=== PATIENT | female | born 1990 | race Caucasian/White ===

== ENCOUNTER 2019-07-24 16:39 | Emergency (ER) | payer OTHER, BC ==
[2019-07-24] MEDS ORDERED: Metoclopramide 10 MG/2 ML SDV IVPUSH ONE (16:56)
[2019-07-24] MEDS ORDERED: Bupivacaine 0.5% 10 ML SDV INJECT ONE (16:57)
[2019-07-24] MEDS ORDERED: Sodium Chloride 0.9% 1,000 ML IV SCH (17:00)
--- NOTE | 2019-07-24 17:00 | EDM.PDOC ---
ED HPI GENERAL MEDICAL PROBLEM - General Chief Complaint: Upper Extremity Injury/Pain Stated Complaint: CUT FINGER TIP OFF Time Seen by Provider: 07/24/19 16:55 Source of Information: Reports: Patient History Limitations: Reports: No Limitations - History of Present Illness INITIAL COMMENTS - FREE TEXT/NARRATIVE: 28-year-old female presents to the ED with a partial amputation of the tip of her left second finger. Patient did this at local school using a second hand paper machine. This is like a hatchet or machete. This resulted in partial amputation of the nail and the volar surface of the left distal second finger ulnar aspect. She believes her tetanus toxoid is up-to-date. Patient suddenly became nauseated when I entered the room. She started vomiting. Onset: Today Onset Date: 07/24/19 Onset Time: 16:15 Duration: Minutes: Location: Reports: Upper Extremity, Left (Left distal ulnar aspect of her second finger) Quality: Reports: Ache, Burning Severity: Moderate Improves with: Reports: None Worsens with: Reports: None Context: Reports: Trauma (Accidentally cut the tip of her finger off with a large second hand paper machine). Denies: Activity, Exercise, Lifting, Sick Contact Associated Symptoms: Reports: Nausea/Vomiting (Started to have nausea and vomiting in the ED.) Treatments WASH HELPER: Reports: Other (see below) (None.) - Related Data Allergies Allergy/AdvReac Type Severity Reaction Status Date / Time No Known Allergies Allergy Verified 07/24/19 17:19 Home Meds: Home Meds DULoxetine HCl [Cymbalta] 60 mg PO DAILY 07/24/19 [History] Doxycycline [Vibramycin] 100 mg PO BID #20 cap 07/24/19 [Rx] traZODone HCl [Trazodone HCl] 50 mg PO BEDTIME 07/24/19 [History] Social & Family History - Living Situation & Occupation Living situation: Reports: Single Occupation: Employed Review of Systems - Review of Systems Review Of Systems: See Below Constitutional: Reports: Other Eyes: Reports: No Symptoms (Nauseated) Ears: Reports: No Symptoms Nose: Reports: No Symptoms Mouth/Throat: Reports: No Symptoms Respiratory: Reports: No Symptoms Cardiovascular: Reports: No Symptoms GI/Abdominal: Reports: No Symptoms Genitourinary: Reports: No Symptoms Musculoskeletal: Reports: Other Skin: Reports: No Symptoms Neurological: Reports: No Symptoms Psychiatric: Reports: No Symptoms ED EXAM, GENERAL - Physical Exam Exam: See Below Exam Limited By: No Limitations General Appearance: Alert, WD/WN, Moderate Distress (Anxious quite pallid. Started vomiting in the room.) Eye Exam: Bilateral Eye: Normal Inspection Throat/Mouth: Normal Inspection, Normal Lips, Normal Teeth, Normal Oropharynx Head: Atraumatic, Normocephalic Extremities: Other (Examination for the most part was limited to her distal left second finger. Partially amputated the corner of the ulnar aspect of the tip of the nail the underlying nailbed and the ulnar aspect of the fingertip. One appears to be intact but will be confirmed by x-ray.) Psychiatric: Anxious Skin Exam: Diaphoretic ED TRAUMA EXTREMITY PROCEDURES - Laceration/Wound Repair Left Distal Digit - 2nd (Index) Lac/Wound Length In cm: 1.5 (Patient has a partial amputation of the ulnar aspect of the tip of her left second finger involving the distal nailbed) Appearance: Subcutaneous, Clean Distal NVT: No Tendon Injury Anesthetic Type: Digital Local Anesthesia - Bupivicaine (Marcaine): 0.5% Plain Local Anesthetic Volume: Other (8 mL) Skin Prep: Chlorhexidine (Hibiciens), Saline (Soaked in saline for 10 minutes with a little bit of Betadine.) Exploration/Debridement/Repair: Minimally Undermined Closed With: Sutures Suture Size: 3-0 # of Sutures: 4 (3 sutures were placed through the fingernail and nail bed to help approximate the wound which was adjacent to the fingernail. Approximately 70% of the wound was approximated. I did undermine the ulnar aspect of the wound.) Suture Type: Nylon, Interrupted, Simple Course - Vital Signs Last Recorded V/S: Last Vital Signs Temp 35.9 C 07/24/19 18:55 Pulse 70 07/24/19 18:55 Resp 16 07/24/19 18:55 BP 103/63 07/24/19 18:55 Pulse Ox 99 07/24/19 18:55 - Orders/Labs/Meds Orders: Active Orders 24 hr Category Date Time Status Fingers Second Digit Lt F1 [CR] Stat Exams 07/24/19 17:18 Taken Meds: Medications Discontinued Medications Generic Name Dose Route Start Last Admin Trade Name Freq PRN Reason Stop Dose Admin Bupivacaine HCl 10 ml 07/24/19 16:57 07/24/19 17:21 Sensorcaine-Mpf 0.5% INJECT 07/24/19 16:58 10 ml ONETIME ONE Administration Bupivacaine HCl Confirm 07/24/19 18:32 07/24/19 19:05 Sensorcaine-Mpf 0.5% Administered 07/24/19 18:33 Not Given Dose 10 ml .ROUTE .STK-MED ONE Doxycycline Hyclate 200 mg 07/24/19 19:21 Vibramycin PO 07/24/19 19:22 ONETIME ONE Sodium Chloride 1,000 mls @ 250 mls/hr 07/24/19 17:00 Normal Saline IV ASDIRECTED WAGNER Metoclopramide HCl 7.5 mg 07/24/19 16:56 Reglan IVPUSH 07/24/19 16:57 ONETIME ONE Ondansetron HCl 4 mg 07/24/19 17:17 07/24/19 17:21 Zofran Odt PO 07/24/19 17:18 4 mg ONETIME ONE Administration - Radiology Interpretation Free Text/Narrative:: 28-year-old female presents to the ED having cut the distal end of a left second finger off. He was cutting paper in a large machete-like second hand paper machine at school. She accidentally caught her distal left ulnar second finger in a second hand paper machine and this resulted in partial amputation of the distal ulnar aspect of her fingernail and pulp space. Patient started vomiting is soon as I walked in the room. I was going to start an IV and give her antinausea medication but once she settled down she preferred not to have an IV and she did tolerate sublingual Zofran 4 mg. - Re-Assessments/Exams Free Text/Narrative Re-Assessment/Exam: 07/24/19 19:00: I did undermine the ulnar volar aspect of the wound. I was then able to approximate the wound partially but I was unable to provide enough skin to close the gap completely with 3-0 Ethilon sutures 4. She'll be placed in a finger cot dressing for the next 2 days. She was given a splint to protect the area for the next couple of weeks. Advised that this will granulate in over a period of about 3 weeks. Sutures are to be removed in 12 days time. She is to place topical bacitracin or Polysporin on the wound daily and then double bandages and protected with the plastic splint that we provided. Follow-up if any signs of infection occur. Follow-up with her personal care physician of the sutures removed in 12 days time. Departure - Departure Time of Disposition: 19:20 Disposition: Home, Self-Care 01 Condition: Fair Clinical Impression: Fingertip amputation Qualifiers: Encounter type: initial encounter Qualified Code(s): S68.119A - Complete traumatic metacarpophalangeal amputation of unspecified finger, initial encounter - Discharge Information *PRESCRIPTION DRUG MONITORING PROGRAM REVIEWED*: Not Applicable *COPY OF PRESCRIPTION DRUG MONITORING REPORT IN PATIENT PATSY: Not Applicable Prescriptions: Doxycycline [Vibramycin] 100 mg PO BID #20 cap Instructions: Traumatic Finger Amputation Referrals: PCP,Not In Area [Primary Care Provider] - Forms: ED Department Discharge Additional Instructions: Evaluation the emergency room today in regards to partial amputation of the very tip of the ulnar aspect of your left second finger. Injury resulted in loss of the distal aspect of the nail and a small portion of the nailbed and the volar ulnar aspect of your fingertip. The wound was cleansed and then sutured under local anesthetic x 4 sutures to partially bridge the gap.. Sutures need to stay in place for 12 days. Home is to daily cleanse area with soap and water. Showering is okay. Then apply topical antibotics such as bacitracin or Polysporin once daily and cover with a bandage to keep clean. Of note her finger nail will grow incompletely as it grows from the base of the nailbed. Most of the amputated portion will fill in with tissue over the next 6 months. There may be a small loss of sensation in this area. Motrin 600 mg as needed for relief of pain. Antibiotic is to be doxycycline with initial tablet provided to the ED tonight. Then to take 100 mg of doxepin twice daily for the next 10 days to prevent secondary wound infection. Return to medical care if any signs of infection occur such as increased redness, swelling, obvious pus. - My Orders Last 24 Hours: My Active Orders 07/24/19 17:18 Fingers Second Digit Lt F1 [CR] Stat - Assessment/Plan Last 24 Hours: My Active Orders 07/24/19 17:18 Fingers Second Digit Lt F1 [CR] Stat
[2019-07-24] MEDS ORDERED: Ondansetron 4 MG Tab.DIS PO ONE (17:17)
[2019-07-24] MEDS ORDERED: Bupivacaine 0.5% 10 ML SDV ONE (18:32)
[2019-07-24] MEDS ORDERED: Doxycycline 100 MG Cap PO ONE (19:21)
--- NOTE | 2019-07-25 09:28 | CR ---
Left 2nd finger: Four views centered to the left 2nd finger were obtained. Comparison: No previous study. Joint spaces are preserved. No fracture, dislocation or other bony abnormality is seen. Proximal soft tissue swelling is identified. Impression: 1. Soft tissue swelling. No bony abnormality is seen on left 2nd finger study. Diagnostic code #2
== END 2019-07-24 19:36 | disposition home or self-care (01) ==
LOC: JD.ED 16:39
DX: S68.611A Complete traumatic transphalangeal amputation of left index finger, initial encounter (principal); Z79.899 Other long term (current) drug therapy; W26.8XXA Contact with other sharp object(s), not elsewhere classified, initial encounter; Y92.219 Unspecified school as the place of occurrence of the external cause
CPT/HCPCS: 12001; 73140; 99283; A9270; J3490

== ENCOUNTER 2019-08-14 12:40 | Emergency (ER) | payer OTHER, BC ==
--- NOTE | 2019-08-14 13:15 | EDM.PDOC ---
ED HPI GENERAL MEDICAL PROBLEM - General Chief Complaint: Skin Complaint Stated Complaint: DISCHARGE TO PREVIOUS LACERATION Time Seen by Provider: 08/14/19 12:54 Source of Information: Reports: Patient, RN Notes Reviewed History Limitations: Reports: No Limitations - History of Present Illness INITIAL COMMENTS - FREE TEXT/NARRATIVE: Patient is a 28-year-old female who presents to the ED for the evaluation of a possible infection to a previous laceration site. 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 She states she did have stitches placed but did have these taken out in an appropriate time fashion. The patient notes that the wounds seem to be healing well, up until around 2 days ago when a blister formed, and then the blister ruptured today and is draining some clear to whitish drainage. Patient notes she does have pain that throbs to this finger. She would rate this at a 1 out of 10 today. She is able to move the finger in all range of motion without complication. left index finger Pain Score (Numeric/FACES): 1 - Related Data Allergies Allergy/AdvReac Type Severity Reaction Status Date / Time No Known Allergies Allergy Verified 08/14/19 12:55 Home Meds: Home Meds DULoxetine HCl [Cymbalta] 60 mg PO DAILY 07/24/19 [History] traZODone HCl [Trazodone HCl] 50 mg PO BEDTIME 07/24/19 [History] Doxycycline [Vibramycin] 100 mg PO BID #20 tab 08/14/19 [Rx] Past Medical History - Past Health History Medical/Surgical History: Denies Medical/Surgical History Cardiovascular History: Reports: Other (See Below) Other Cardiovascular History: cheari malformation Psychiatric History: Reports: Anxiety, Depression, Other (See Below) Other Psychiatric History: insomnia Social & Family History - Tobacco Use Smoking Status *Q: Never Smoker - Caffeine Use Caffeine Use: Reports: None - Recreational Drug Use Recreational Drug Use: No - Living Situation & Occupation Living situation: Reports: Single Occupation: Employed ED ROS GENERAL - Review of Systems Review Of Systems: See Below Constitutional: Denies: Fever, Chills HEENT: Reports: No Symptoms Respiratory: Reports: No Symptoms Cardiovascular: Reports: No Symptoms Endocrine: Reports: No Symptoms GI/Abdominal: Reports: No Symptoms : Reports: No Symptoms Musculoskeletal: Reports: Hand Pain (Left index finger pain) Skin: Reports: Wound (wound to L index finger in healing stage, there is a blister present, with clear to whitish drainage noted. Surrounding erythema also present.) ED EXAM, SKIN/RASH Exam: See Below Exam Limited By: No Limitations General Appearance: Alert, WD/WN, No Apparent Distress Respiratory/Chest: No Respiratory Distress, Lungs Clear, Normal Breath Sounds, No Accessory Muscle Use, Chest Non-Tender Cardiovascular: Normal Peripheral Pulses, Regular Rate, Rhythm, No Murmur Peripheral Pulses: 3+: Radial (L), Radial (R) Extremities: Normal Range of Motion, Normal Capillary Refill, Increased Warmth ( to left index finger tip around the healing laceration.), Redness (to left index finger tip around the healing laceration.) Neurological: Alert, Oriented, Normal Cognition, No Motor/Sensory Deficits Psychiatric: Normal Affect, Normal Mood Skin: Warm, Dry, No Rash, Wound/Incision (to left index finger tip with surrounding erythema present, there is a blister that is oozing clear-whitish discharge. Mild tenderness with palpation to area around healing wound.) Course - Vital Signs Last Recorded V/S: Last Vital Signs Temp 97.6 F 08/14/19 12:52 Pulse 72 08/14/19 12:52 Resp 16 08/14/19 12:52 BP 148/86 H 08/14/19 12:52 Pulse Ox 99 08/14/19 12:52 - Re-Assessments/Exams Free Text/Narrative Re-Assessment/Exam: 08/14/19 13:21 Patient resents to the ED for evaluation of a possible infection near of wound. 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 Departure - Departure Time of Disposition: 13:11 Disposition: Home, Self-Care 01 Condition: Fair Clinical Impression: Cellulitis of finger of left hand - Discharge Information *PRESCRIPTION DRUG MONITORING PROGRAM REVIEWED*: No *COPY OF PRESCRIPTION DRUG MONITORING REPORT IN PATIENT PATSY: No Prescriptions: Doxycycline [Vibramycin] 100 mg PO BID #20 tab Instructions: Cellulitis, Adult, [id number] Referrals: PCP,Not In Area [Primary Care Provider] - Forms: ED Department Discharge Additional Instructions: You were evaluated in the ER today for your discharged to your previous wound. This is consistent with a cellulitis in nature, you will be placed on a course of antibiotics, this is doxycycline 100 mg twice a day for 10 days. This was electronically sent to the [facility] pharmacy located near [facility], he will need to go there to give the antibiotics, this pharmacy is only open from 12 to 4 PM today. You may take 500 mg Tylenol or 30 mg ibuprofen every 6 hours as needed for further pain relief. Please return to the ED if your symptoms change or worsen.
== END 2019-08-14 13:30 | disposition home or self-care (01) ==
LOC: JD.ED 12:40
DX: L03.012 Cellulitis of left finger (principal); F41.9 Anxiety disorder, unspecified; F32.9 Major depressive disorder, single episode, unspecified; Z79.899 Other long term (current) drug therapy
CPT/HCPCS: 99283

== ENCOUNTER 2019-08-16 19:55 | Emergency (ER) | payer OTHER, BC ==
[2019-08-16] MEDS ORDERED: FLU Vacc QS2019-20(6MOS+)/PF 60 MCG/0.5 ML SYRINGE IM ONE (20:45)
--- NOTE | 2019-08-16 22:17 | EDM.PDOC ---
ED HPI GENERAL MEDICAL PROBLEM - General Chief Complaint: Upper Extremity Injury/Pain Stated Complaint: INFECTED POINTER FINGER LEFT HAND Time Seen by Provider: 08/16/19 22:05 Source of Information: Reports: Patient, RN Notes Reviewed History Limitations: Reports: No Limitations - History of Present Illness INITIAL COMMENTS - FREE TEXT/NARRATIVE: Patient presents to the ED for evaluation of an infected left pointer finger. The patient was recently evaluated in this ER 2 days ago by myself and placed on doxycycline for suspected infection at the fingertip. Patient states she is taking the doxycycline as prescribed, however the infection has not gotten much better. There is some surrounding whiteness to the wound, with erythema after of the white border. Patient denies any fevers or chills, she states she does have some pain that shoots up her finger, however she does not have any numbness or tingling to the area. Left Finger-Index Pain Score (Numeric/FACES): 1 - Related Data Allergies Allergy/AdvReac Type Severity Reaction Status Date / Time No Known Allergies Allergy Verified 08/16/19 20:26 Home Meds: Home Meds DULoxetine HCl [Cymbalta] 60 mg PO DAILY 07/24/19 [History] traZODone HCl [Trazodone HCl] 50 mg PO BEDTIME 07/24/19 [History] Doxycycline [Vibramycin] 100 mg PO BID #20 tab 08/14/19 [Rx] Past Medical History - Past Health History Medical/Surgical History: Denies Medical/Surgical History HEENT History: Reports: None Cardiovascular History: Reports: None Other Cardiovascular History: cheari malformation Respiratory History: Reports: None Gastrointestinal History: Reports: None Genitourinary History: Reports: None LITIGATION SECRETARY History: Reports: None Musculoskeletal History: Reports: None Neurological History: Reports: Other (See Below) Other Neuro History: chiari malformation Psychiatric History: Reports: Anxiety, Depression, Other (See Below) Other Psychiatric History: insomnia Endocrine/Metabolic History: Reports: None Hematologic History: Reports: None Immunologic History: Reports: None Oncologic (Cancer) History: Reports: None Dermatologic History: Reports: None - Infectious Disease History Infectious Disease History: Reports: None - Past Surgical History Head Surgeries/Procedures: Reports: None Social & Family History - Tobacco Use Smoking Status *Q: Never Smoker - Caffeine Use Caffeine Use: Reports: Coffee - Recreational Drug Use Recreational Drug Use: No - Living Situation & Occupation Living situation: Reports: Single Occupation: Employed Review of Systems - Review of Systems Review Of Systems: See Below Constitutional: Denies: Fever Ears: Reports: No Symptoms Nose: Reports: No Symptoms Mouth/Throat: Reports: No Symptoms Respiratory: Reports: No Symptoms Cardiovascular: Reports: No Symptoms GI/Abdominal: Reports: No Symptoms Genitourinary: Reports: No Symptoms Musculoskeletal: Reports: Hand Pain (left finger tip pain) Skin: Reports: Erythema (left finger tip), Wound (healing wound to left finger tip with surrounding white border, mildly fluctuant and tender to touch with erythema) Neurological: Reports: No Symptoms Psychiatric: Reports: No Symptoms ED EXAM, GENERAL - Physical Exam Exam: See Below Exam Limited By: No Limitations General Appearance: Alert, WD/WN, No Apparent Distress Respiratory/Chest: No Respiratory Distress, Lungs Clear, Normal Breath Sounds, No Accessory Muscle Use, Chest Non-Tender Cardiovascular: Normal Peripheral Pulses, Regular Rate, Rhythm, No Murmur Peripheral Pulses: 3+: Radial (L), Radial (R) Extremities: Normal Inspection (with exception of left pointer finger), Normal Range of Motion, Normal Capillary Refill Neurological: Alert, Oriented, Normal Cognition, No Motor/Sensory Deficits Psychiatric: Normal Affect, Normal Mood Skin Exam: Warm, Dry, Normal Color, No Rash, Wound/Incision (healing wound to left finger tip with surrounding white border, mildly fluctuant and tender to touch with erythema) ED TRAUMA EXTREMITY PROCEDURES - I&D Site: Left finger tip Skin Prep: Chlorhexidine (Hibiciens) Area Incised With: Needle (18g needle) Drainage: Purulent, Small Amount Probed to Break Up Loculations: No Sterile Dressing: Adhesive Dressing Complications: No Progress/Comments: The white area around the wound was sloughing skin. I did debride away most of what came loose. Course - Vital Signs Last Recorded V/S: Last Vital Signs Temp 98.3 F 08/16/19 20:23 Pulse 88 08/16/19 20:23 Resp 16 08/16/19 20:23 BP 151/105 H 08/16/19 20:23 Pulse Ox 100 08/16/19 20:23 - Orders/Labs/Meds Orders: Active Orders 24 hr Category Date Time Status Influenza Vaccine Charge [RC] .DISCHARGE Care 08/16/19 20:29 Active Acetaminophen/HYDROcodone [[place] 325-10 MG] Med 08/16/19 22:40 Once 1 tab PO ONETIME ONE Medication Orders Hydrocodone Bitart/Acetaminophen ([place] 325-10 Mg) 1 tab PO ONETIME ONE Stop: 08/16/19 22:41 Meds: Medications Generic Name Dose Route Start Last Admin Trade Name Freq PRN Reason Stop Dose Admin Hydrocodone Bitart/Acetaminophen 1 tab 08/16/19 22:40 [place] 325-10 Mg PO 08/16/19 22:41 ONETIME ONE Discontinued Medications Generic Name Dose Route Start Last Admin Trade Name Freq PRN Reason Stop Dose Admin Influenza Virus Vaccine 60 mcg 08/16/19 20:45 08/16/19 21:38 Fluzone Quad Syringe IM 08/16/19 20:46 60 mcg .ONCE ONE Administration Departure - Departure Time of Disposition: 22:15 Disposition: Home, Self-Care 01 Condition: Fair Clinical Impression: Infected finger laceration Qualifiers: Encounter type: subsequent encounter Qualified Code(s): S61.219D - Laceration without foreign body of unspecified finger without damage to nail, subsequent encounter - Discharge Information *PRESCRIPTION DRUG MONITORING PROGRAM REVIEWED*: No *COPY OF PRESCRIPTION DRUG MONITORING REPORT IN PATIENT PATSY: No Instructions: Wound Care, Adult Referrals: PCP,Not In Area [Primary Care Provider] - Forms: ED Department Discharge Additional Instructions: You were evaluated in the ER today for your left fingertip infection. Please keep taking the doxycycline as prescribed, as this will help provide coverage. Your wound was incised, drained and debrided in the ER, please allow the wound to drain over the next few days, you will need to try to keep this area as clean and as dry as possible, may need to be place bandages as needed, as the drainage lessens, or if the bandages get dirty. Please return to the ED if your symptoms should change or worsen. - My Orders Last 24 Hours: My Active Orders 08/16/19 20:29 Influenza Vaccine Charge [RC] .DISCHARGE 08/16/19 22:40 Acetaminophen/HYDROcodone [[place] 325-10 MG] 1 tab PO ONETIME ONE - Assessment/Plan Last 24 Hours: My Active Orders 08/16/19 20:29 Influenza Vaccine Charge [RC] .DISCHARGE 08/16/19 22:40 Acetaminophen/HYDROcodone [[place] 325-10 MG] 1 tab PO ONETIME ONE
[2019-08-16] MEDS ORDERED: Acetaminophen/HYDROcodone 325-10 MG Tab PO ONE (22:40)
== END 2019-08-16 22:58 | disposition home or self-care (01) ==
LOC: JD.ED 19:55
DX: S61.211D Laceration without foreign body of left index finger without damage to nail, subsequent encounter (principal); L08.9 Local infection of the skin and subcutaneous tissue, unspecified; F41.9 Anxiety disorder, unspecified; F32.9 Major depressive disorder, single episode, unspecified; Z23 Encounter for immunization; Z79.899 Other long term (current) drug therapy; W26.8XXD Contact with other sharp object(s), not elsewhere classified, subsequent encounter
CPT/HCPCS: 90471; 90686; 99283; A9270; G0008

== ENCOUNTER 2021-03-19 12:54 | Emergency (ER) | payer BC, OTHER ==
[2021-03-19] MEDS ORDERED: Sodium Chloride 0.9% 10 ML Syringe FLUSH PRN (13:17)
[2021-03-19] MEDS ORDERED: Metoclopramide 10 MG/2 ML SDV IVPUSH ONE (13:18)
[2021-03-19] MEDS ORDERED: diphenhydrAMINE 50 MG/ML SDV IVPUSH ONE (13:18)
[2021-03-19] MEDS ORDERED: Ketorolac 30 MG/ML SDV IVPUSH ONE (13:19)
--- NOTE | 2021-03-19 13:46 | CT ---
Head CT Technique: Multiple axial sections through the brain were obtained. Intravenous contrast was not utilized. Comparison: No prior intracranial imaging is available. Findings: Ventricles along with basal cisterns and sulci over the convexities appear within normal limits for the patient's age. No abnormal parenchymal densities are seen. No evidence of intracranial hemorrhage is seen. No midline shift or mass-effect is seen. Bone window settings were reviewed. Visualized mastoid sinuses and paranasal sinuses show nothing acute. No acute calvarial abnormality is appreciated. Impression: 1. No abnormality is identified on noncontrast head CT exam. Diagnostic code #1
--- NOTE | 2021-03-19 14:29 | EDM.PDOC ---
ED HPI GENERAL MEDICAL PROBLEM - General Chief Complaint: Headache Stated Complaint: HEADACHE/NAUSEA Time Seen by Provider: 03/19/21 13:07 Source of Information: Reports: Patient History Limitations: Reports: No Limitations - History of Present Illness INITIAL COMMENTS - FREE TEXT/NARRATIVE: The patient presents with a headache. She said this started at 8:30am. The pain is in the back of the head and radiates to behind her eyes. She has some nausea with it. She was also a little confused. She has had headaches before but not this bad and ibuprofen usually helps. She has no fever, chills, cough, chest pain, shortness of breath, abdominal pain, numbness or weakness. She does not think she is . Onset: Gradual Duration: Hour(s): Location: Reports: Head Quality: Reports: Ache Severity: Moderate Improves with: Reports: None Worsens with: Reports: None Associated Symptoms: Reports: Headaches, Nausea/Vomiting. Denies: Chest Pain, Cough, Fever/Chills, Shortness of Breath Treatments MEDICATION TECHNICIAN: Reports: Other (see below) Other Treatments MEDICATION TECHNICIAN: none Headache Pain Score (Numeric/FACES): 3 - Related Data Allergies Allergy/AdvReac Type Severity Reaction Status Date / Time No Known Allergies Allergy Verified 08/16/19 20:26 Home Meds: Home Meds DULoxetine HCl [Cymbalta] 60 mg PO DAILY 07/24/19 [History] traZODone HCl [Trazodone HCl] 50 mg PO BEDTIME 07/24/19 [History] Phentermine HCl 37.5 mg PO DAILY 03/19/21 [History] buPROPion [Wellbutrin SR] 300 mg PO DAILY 03/19/21 [History] Past Medical History - Past Health History Medical/Surgical History: Denies Medical/Surgical History HEENT History: Reports: None Cardiovascular History: Reports: None Other Cardiovascular History: cheari malformation Respiratory History: Reports: None Gastrointestinal History: Reports: None Genitourinary History: Reports: None TRANSFER STATION OPERATOR History: Reports: None Musculoskeletal History: Reports: None Neurological History: Reports: Other (See Below) Other Neuro History: chiari malformation Psychiatric History: Reports: Anxiety, Depression, Other (See Below) Other Psychiatric History: insomnia Endocrine/Metabolic History: Reports: None Hematologic History: Reports: None Immunologic History: Reports: None Oncologic (Cancer) History: Reports: None Dermatologic History: Reports: None - Infectious Disease History Infectious Disease History: Reports: None - Past Surgical History Head Surgeries/Procedures: Reports: None Social & Family History - Tobacco Use Tobacco Use Status *Q: Never Tobacco User - Caffeine Use Caffeine Use: Reports: Coffee - Recreational Drug Use Recreational Drug Use: No - Living Situation & Occupation Living situation: Reports: Single Occupation: Employed ED ROS GENERAL - Review of Systems Review Of Systems: See Below Constitutional: Reports: No Symptoms HEENT: Reports: No Symptoms Respiratory: Reports: No Symptoms Cardiovascular: Reports: No Symptoms Endocrine: Reports: No Symptoms GI/Abdominal: Reports: Nausea. Denies: Abdominal Pain, Vomiting Neurological: Reports: Headache - Physical Exam Exam: See Below Exam Limited By: No Limitations General Appearance: Alert, No Apparent Distress Ears: Normal External Exam Nose: Normal Inspection Head Exam: Atraumatic, Normocephalic Neck: Normal Inspection, Supple, Non-Tender Respiratory/Chest: No Respiratory Distress, Lungs Clear, Normal Breath Sounds Cardiovascular: Regular Rate, Rhythm, No Edema, No Murmur GI/Abdominal: Soft, Non-Tender, No Organomegaly, No Mass Neuro Exam (Abbreviated): Alert, Oriented, No Motor/Sensory Deficits Course - Vital Signs Last Recorded V/S: Last Vital Signs Temp 97.7 F 03/19/21 13:11 Pulse 110 H 03/19/21 13:11 Resp 20 03/19/21 13:11 BP 149/110 H 03/19/21 13:11 Pulse Ox 100 03/19/21 13:11 - Orders/Labs/Meds Orders: Active Orders 24 hr Category Date Time Status Cardiac Monitoring [RC] . DIRECTED Care 03/19/21 13:17 Active Peripheral IV Care [RC] . DIRECTED Care 03/19/21 13:18 Active Sodium Chloride 0.9% [Saline Flush] Med 03/19/21 13:17 Active 10 ml FLUSH ASDIRECTED PRN Peripheral IV Insertion Adult [OM.PC] Stat Oth 03/19/21 13:17 Ordered Medication Orders Sodium Chloride (Sodium Chloride 0.9% 10 Ml Syringe) 10 ml FLUSH ASDIRECTED PRN PRN Reason: Keep Vein Open Last Admin: 03/19/21 13:44 Dose: 10 ml Documented by: LEVY Labs: Laboratory Tests 05/04/21 05/04/21 Range/Units 13:35 13:35 WBC 8.99 (3.98-10.04) K/mm3 RBC 4.46 (3.98-5.22) M/mm3 Hgb 14.0 (11.2-15.7) gm/dl Hct 40.4 (34.1-44.9) % MCV 90.6 (79.4-94.8) fl MCH 31.4 (25.6-32.2) pg MCHC 34.7 (32.2-35.5) g/dl RDW Std Deviation 39.4 (36.4-46.3) fL Plt Count 323 (182-369) K/mm3 MPV 9.6 (9.4-12.3) fl Neut % (Auto) 66.5 (34.0-71.1) % Lymph % (Auto) 23.7 (19.3-51.7) % [place] % (Auto) 7.2 (4.7-12.5) % Eos % (Auto) 2.1 (0.7-5.8) Baso % (Auto) 0.4 (0.1-1.2) % Neut # (Auto) 5.97 (1.56-6.13) K/mm3 Lymph # (Auto) 2.13 (1.18-3.74) K/mm3 [place] # (Auto) 0.65 H (0.24-0.36) K/mm3 Eos # (Auto) 0.19 (0.04-0.36) K/mm3 Baso # (Auto) 0.04 (0.01-0.08) K/mm3 Sodium 141 (136-145) mEq/L Potassium 3.7 (3.5-5.1) mEq/L Chloride 105 (98-107) mEq/L Carbon Dioxide 24 (21-32) mEq/L Anion Gap 15.7 H (5-15) BUN 9 (7-18) mg/dL Creatinine 0.8 (0.55-1.02) mg/dL Est Cr Clr Drug Dosing 97.13 mL/min Estimated GFR (MDRD) > 60 (>60) mL/min BUN/Creatinine Ratio 11.3 L (14-18) Glucose 93 (74-106) mg/dL Calcium 8.6 (8.5-10.1) mg/dL Magnesium 1.8 (1.8-2.4) mg/dl Total Bilirubin 0.6 (0.2-1.0) mg/dL AST 15 (15-37) U/L ALT 38 (14-59) U/L Alkaline Phosphatase 87 (46-116) U/L Total Protein 7.0 (6.4-8.2) g/dl Albumin 3.9 (3.4-5.0) g/dl Globulin 3.1 gm/dL Albumin/Globulin Ratio 1.3 (1-2) Meds: Medications Generic Name Dose Route Start Last Admin Trade Name Freq PRN Reason Stop Dose Admin Sodium Chloride 10 ml 03/19/21 13:17 03/19/21 13:44 Sodium Chloride 0.9% 10 Ml Syringe FLUSH 10 ml ASDIRECTED PRN Administration Keep Vein Open Discontinued Medications Generic Name Dose Route Start Last Admin Trade Name Freq PRN Reason Stop Dose Admin Diphenhydramine HCl 50 mg 03/19/21 13:18 03/19/21 13:43 Diphenhydramine 50 Mg/Ml Sdv IVPUSH 03/19/21 13:19 50 mg ONETIME ONE Administration Ketorolac Tromethamine 30 mg 03/19/21 13:19 03/19/21 13:42 Ketorolac 30 Mg/Ml Sdv IVPUSH 03/19/21 13:20 30 mg ONETIME ONE Administration Metoclopramide HCl 10 mg 03/19/21 13:18 03/19/21 13:40 Metoclopramide 10 Mg/2 Ml Sdv IVPUSH 03/19/21 13:19 10 mg ONETIME ONE Administration - Re-Assessments/Exams Free Text/Narrative Re-Assessment/Exam: 03/19/21 14:30 I ordered an IV saline lock, CT of her head, labs, reglan 10mg IV, benadryl 50mg IV and toradol 30mg IV. The CT of her head looks good and her labs look good. 03/19/21 14:33 Her headache is better. I will discharge her home. Departure - Departure Time of Disposition: 14:40 Disposition: Home, Self-Care 01 Condition: Good Clinical Impression: Headache Qualifiers: Headache type: other headache syndrome Qualified Code(s): G44.89 - Other headache syndrome - Discharge Information *PRESCRIPTION DRUG MONITORING PROGRAM REVIEWED*: Not Applicable *COPY OF PRESCRIPTION DRUG MONITORING REPORT IN PATIENT PATSY: Not Applicable Referrals: Kathy Euceda, PUMP PRESS OPERATOR [Primary Care Provider] - 1 Week Forms: ED Department Discharge Additional Instructions: Go home and rest. Take tylenol or motrin for any more headache. Please return if you are worse. Follow up with Kathy within a week. Sepsis Event Note (ED) - Evaluation Sepsis Screening Result: No Definite Risk - Focused Exam Vital Signs: Vital Signs Temp Pulse Resp BP Pulse Ox 03/19/21 13:11 97.7 F 110 H 20 149/110 H 100 - My Orders Last 24 Hours: My Active Orders 03/19/21 13:17 Cardiac Monitoring [RC] . DIRECTED Sodium Chloride 0.9% [Saline Flush] 10 ml FLUSH ASDIRECTED PRN Peripheral IV Insertion Adult [OM.PC] Stat 03/19/21 13:18 Peripheral IV Care [RC] . DIRECTED - Assessment/Plan Last 24 Hours: My Active Orders 03/19/21 13:17 Cardiac Monitoring [RC] . DIRECTED Sodium Chloride 0.9% [Saline Flush] 10 ml FLUSH ASDIRECTED PRN Peripheral IV Insertion Adult [OM.PC] Stat 03/19/21 13:18 Peripheral IV Care [RC] . DIRECTED
== END 2021-03-19 14:44 | disposition home or self-care (01) ==
LOC: JD.ED 12:54
DX: G44.89 Other headache syndrome (principal)
CPT/HCPCS: 36415; 70450; 80053; 83735; 85025; 96374; 96375; 99284; J1200; J1885; J2765